=== PATIENT | female | born 1970 | race Caucasian/White ===

== ENCOUNTER → 2017-03-07 10:25 | Outpatient (CLI) | payer MEDICAID, SELFPAY ==
[2017-03-07 12:24] LABS: Amphetamine/Metha Screen,Urine Negative ng/mL (<1000); Barbiturates Screen,Urine Negative ng/mL (<200); Benzodiazepines Screen,Urine Negative ng/mL (200); Cannabinoid Screen,Urine Negative ng/mL (<50); Cocaine Screen,Urine Negative ng/g (<300); Methadone Screen,Urine Negative ng/mL (<300); Opiate Screen,Urine Negative ng/mL (<300); Phencyclidine Screen,Urine Negative ng/mL (<25)
[2017-03-17 11:06] LABS: Opiates Negative (Cutoff=100)
== END ==
PROVIDERS: PCP Nurse Practitioner Family; Visit Provider Anesthesiology
DX: Z79.899 Other long term (current) drug therapy (principal)
CPT/HCPCS: 80305; 80361; G0480

== ENCOUNTER → 2017-07-19 10:55 | Outpatient (REF) | payer MEDICAID, SELFPAY | LOC: LAB.CARL 10:55 | PROVIDERS: Visit Provider Nurse Practitioner Family | DX: S31.101A Unspecified open wound of abdominal wall, left upper quadrant without penetration into peritoneal cavity, initial encounter (principal); S31.100A Unspecified open wound of abdominal wall, right upper quadrant without penetration into peritoneal cavity, initial encounter | CPT/HCPCS: 87070; 87077; 87186; 87205 ==

== ENCOUNTER → 2018-06-06 11:24 | Outpatient (CLI) | payer MEDICAID, SELFPAY ==
[2018-06-06 14:36] LABS: Basophils # 0.1 K/mm3 (0-0.2); Basophils % 0.6 % (0.1-2.0); Eosinophils # 0.2 K/mm3 (0.0-0.4); Eosinophils % 1.5 % (0.1-12.0); Hematocrit 40.5 % (37.0-47.0); Hemoglobin 11.8 g/dL (12.2-16.2); Lymphocytes # 2.7 K/mm3 (0.7-4.5); Lymphocytes % 25.7 % (10-50); Mean Corpuscular HGB Conc 29.3 g/dL (31.8-35.4); Mean Corpuscular Hemoglobin 25.6 pg (27.0-31.2); Mean Corpuscular Volume 87.5 fl (81-99); Mean Platelet Volume 7.9 fl (7.4-10.4); Monocytes # 0.6 K/mm3 (0.1-1.0); Monocytes % 5.5 % (1.7-9.3); Neutrophils # 7.1 K/mm3 (1.8-7.8); Neutrophils % 66.8 % (37.0-80.0); Platelet Count 437 K/mm3 (142-424); Red Blood Count 4.62 M/mm3 (4.20-5.40); Red Cell Distribution Width 16.2 % (11.5-17.5); White Blood Count 10.6 K/mm3 (4.8-10.8)
[2018-06-06 14:42] LABS: Alanine Aminotransferase 47 U/L (12-78); Albumin/Globulin Ratio 0.7 (1.1-1.8); Alkaline Phosphatase 93 U/L (46-116); Anion Gap 11.8 mEq/L (5-15); Aspartate Amino Transferase 23 U/L (15-37); Bilirubin,Total 0.3 mg/dL (0.2-1.0); Blood Urea Nitrogen 13 mg/dL (7-18); Carbon Dioxide 27 mmol/L (21.0-32.0); Chloride 98 mmol/L (98-107); Chol/HDL Ratio 4.8 (1-3.5); Cholesterol 101 mg/dL (140-200); Creatinine,Serum 1.08 mg/dL (0.55-1.02); Estimated Glomerular Filt Rate 54 ml/min (>60); GFR (African American) 66 ML/MIN (>60); Globulin 4.3 gm/dl (1.3-3.2); HDL Cholesterol 21 mg/dL (29-89); LDL Cholesterol 46 mg/dL (0-130); Potassium 4.8 mmoL/L (3.5-5.1); Sodium 132 mmol/L (136-145); Total Protein,Serum 7.3 gm/dL (6.4-8.2); Triglycerides 170 mg/dL (30-200); VLDL Cholesterol 34 mg/dL (0-40)
[2018-06-06 14:53] LABS: Glucose 473 mg/dL (74-106)
[2018-06-06 15:30] LABS: Amphetamine/Metha Screen,Urine Negative ng/mL (<1000); Barbiturates Screen,Urine Negative ng/mL (<200); Benzodiazepines Screen,Urine Negative ng/mL (<200); Cannabinoid Screen,Urine Negative ng/mL (<50); Cocaine Screen,Urine Negative ng/mL (<300); Methadone Screen,Urine Negative ng/mL (<300); Opiate Screen,Urine Negative ng/mL (<300); Phencyclidine Screen,Urine Negative ng/mL (<25)
[2018-06-06 18:01] LABS: Hemoglobin A1C 13.3 % (0.0-7.0)
[2018-06-09 06:41] LABS: Microalbumin, Urine 66.7 ug/mL (Not Estab.)
== END ==
PROVIDERS: PCP Nurse Practitioner Family; Visit Provider Nurse Practitioner Family
DX: E11.59 Type 2 diabetes mellitus with other circulatory complications (principal); Z79.4 Long term (current) use of insulin; Z79.899 Other long term (current) drug therapy; Z79.84 Long term (current) use of oral hypoglycemic drugs
CPT/HCPCS: 36415; 80053; 80061; 80305; 82043; 83036; 85025

== ENCOUNTER → 2018-06-13 13:46 | Outpatient (CLI) | payer MEDICAID, SELFPAY ==
[2018-06-13 15:14] LABS: Amphetamine/Metha Screen,Urine Negative ng/mL (<1000); Barbiturates Screen,Urine Negative ng/mL (<200); Benzodiazepines Screen,Urine Positive ng/mL (<200); Cannabinoid Screen,Urine Negative ng/mL (<50); Cocaine Screen,Urine Negative ng/mL (<300); Methadone Screen,Urine Negative ng/mL (<300); Opiate Screen,Urine Negative ng/mL (<300); Phencyclidine Screen,Urine Negative ng/mL (<25)
[2018-06-20 11:20] LABS: Alprazolam Negative (Cutoff=100); Benzodiazepines Positive ng/mL (Cutoff=100); Clonazepam Negative (Cutoff=100); Flurazepam Negative (Cutoff=100); Lorazepam Negative (Cutoff=100); Midazolam Negative (Cutoff=100); Temazepam Negative (Cutoff=100); Triazolam Negative (Cutoff=100)
== END ==
PROVIDERS: Visit Provider Nurse Practitioner Family
DX: Z79.899 Other long term (current) drug therapy (principal); N39.0 Urinary tract infection, site not specified; F41.9 Anxiety disorder, unspecified
CPT/HCPCS: 80305; 80346; 87086; 87088; 87186

== ENCOUNTER 2018-06-15 14:09 | Outpatient (CLI) | payer MEDICAID, SELFPAY ==
[2018-06-15 14:10] VITALS: BP 124/71; PULSE 73; RESP 20; TEMP 36.6; O2SAT 92
== END 2018-06-15 14:51 | disposition home or self-care (01) ==
LOC: INF 14:10
PROVIDERS: PCP Nurse Practitioner Family; Visit Provider Nurse Practitioner Family
DX: N39.0 Urinary tract infection, site not specified (principal); Z16.12 Extended spectrum beta lactamase (ESBL) resistance
CPT/HCPCS: 96372; J1335

== ENCOUNTER → 2018-06-16 11:55 | Outpatient (CLI) | payer MEDICAID, SELFPAY ==
[2018-06-16 12:13] VITALS: BP 128/63; PULSE 95; RESP 16; TEMP 36.9; O2SAT 92; BMI 51.3
[2018-06-16 12:26] VITALS: BP 132/80; PULSE 84; RESP 16; TEMP 36.9; O2SAT 96
== END ==
PROVIDERS: PCP Nurse Practitioner Family; Visit Provider Nurse Practitioner Family
DX: N39.0 Urinary tract infection, site not specified (principal); Z16.12 Extended spectrum beta lactamase (ESBL) resistance
CPT/HCPCS: 96372; J1335

== ENCOUNTER → 2018-06-17 14:10 | Outpatient (CLI) | payer MEDICAID, SELFPAY ==
[2018-06-17 14:16] VITALS: BP 95/56; PULSE 84; RESP 16; TEMP 36.8; O2SAT 98; BMI 51.3
[2018-06-17 14:40] VITALS: BP 125/71; PULSE 83; RESP 16; TEMP 36.8; O2SAT 98
== END ==
PROVIDERS: PCP Nurse Practitioner Family; Visit Provider Nurse Practitioner Family
DX: N39.0 Urinary tract infection, site not specified (principal); Z16.12 Extended spectrum beta lactamase (ESBL) resistance
CPT/HCPCS: 96372; J1335

== ENCOUNTER → 2018-08-22 18:04 | Outpatient (CLI) | payer MEDICAID, SELFPAY ==
[2018-08-24 17:13] LABS: Microalbumin, Urine 156.7 ug/mL (Not Estab.)
== END ==
PROVIDERS: Visit Provider Nurse Practitioner Family
DX: E11.59 Type 2 diabetes mellitus with other circulatory complications (principal); R82.998 Other abnormal findings in urine
CPT/HCPCS: 82043; 87086; 87088; 87186

== ENCOUNTER → 2019-07-05 13:08 | Outpatient (CLI) | payer MEDICAID, SELFPAY ==
[2019-07-05 13:32] LABS: Basophils # 0.2 K/mm3 (0-0.2); Basophils % 1.6 % (0.1-2.0); Eosinophils # 0.3 K/mm3 (0.0-0.4); Eosinophils % 2.9 % (0.1-12.0); Hematocrit 40.5 % (37.0-47.0); Lymphocytes # 3.2 K/mm3 (0.7-4.5); Lymphocytes % 29.3 % (10-50); Mean Corpuscular Hemoglobin 31.1 pg (27.0-31.2); Mean Corpuscular Volume 97.1 fl (81-99); Mean Platelet Volume 8.3 fl (7.4-10.4); Monocytes # 0.6 K/mm3 (0.1-1.0); Monocytes % 5.8 % (1.7-9.3); Neutrophils # 6.6 K/mm3 (1.8-7.8); Neutrophils % 60.4 % (37.0-80.0); Platelet Count 418 K/mm3 (142-424); Red Blood Count 4.17 M/mm3 (4.20-5.40); Red Cell Distribution Width 14.8 % (11.5-17.5); White Blood Count 10.9 K/mm3 (4.8-10.8)
[2019-07-05 13:36] LABS: Chloride 104 mmol/L (98-107)
[2019-07-05 13:37] LABS: Potassium 5.2 mmoL/L (3.5-5.1); Sodium 138 mmol/L (136-145)
[2019-07-05 13:39] LABS: Alanine Aminotransferase 35 U/L (12-78); Alkaline Phosphatase 98 U/L (38-126); Aspartate Amino Transferase 38 U/L (14-36); Bilirubin,Total 0.5 mg/dl (0.2-1.3); Blood Urea Nitrogen 13 mg/dl (7-17); Estimated Glomerular Filt Rate 77 ml/min (>60); GFR (African American) 93 ML/MIN (>60)
[2019-07-05 13:40] LABS: Albumin Level 3.6 g/dl (3.5-5.0); Anion Gap 10.2 mEq/L (5-15); Calcium 9.8 mg/dl (8.4-10.2); Carbon Dioxide 29 mmol/L (22.0-30.0); Chol/HDL Ratio 5.3 (1-3.5); Cholesterol 175 mg/dl (140-200); Globulin 3.5 g/dL (1.3-3.2); Glucose 233 mg/dl (74-100); HDL Cholesterol 33 mg/dl (40-60); Total Protein,Serum 7.1 g/dl (6.3-8.2); Triglycerides 220 mg/dl (30-150); VLDL Cholesterol 44 mg/dL (0-40)
[2019-07-05 13:53] LABS: Hemoglobin A1C 7.3 % (4.0-6.0)
[2019-07-05 13:58] LABS: T4 (Thyroxine) 10.4 ug/dl (5.53-11.0)
[2019-07-05 14:11] LABS: Thyroid Stimulating Hormone 0.21 uIU/mL (0.465-4.68)
[2019-07-06 10:37] LABS: Vitamin D 25 Hydroxy 13.8 ng/mL (30.0-100.0)
[2019-07-06 10:38] LABS: Microalbumin, Urine 117.7 ug/mL (Not Estab.)
== END ==
PROVIDERS: Visit Provider Nurse Practitioner Family
DX: E11.9 Type 2 diabetes mellitus without complications (principal); E78.5 Hyperlipidemia, unspecified; E55.9 Vitamin D deficiency, unspecified; Z79.84 Long term (current) use of oral hypoglycemic drugs
CPT/HCPCS: 80053; 80061; 82043; 82652; 83036; 84436; 84443; 85025

== ENCOUNTER 2019-08-19 13:34 | Emergency (ER) | payer MEDICAID, SELFPAY ==
[2019-08-19] VITALS (20 sets, daily range): BP systolic 118–241; BP diastolic 64–133; PULSE 76–138; RESP 14–34; TEMP 36.7–37.7; O2SAT 90–100; BMI 35.5; BMI 61.9
--- NOTE | 2019-08-19 13:30 | PC.NURSE ---
1330: Pt arrived per ems on 100% non rebreather, responsive only to painful stimuli. Pt began to be bagged at this time. stated he wish to intubate. Pt given etomidate 8mg and succ 100mg 1334: Pt intubated with 7.0 ET 22 @ lip, bilateral breath sounds noted. 1340: 16F NG inserted @60, yellow gastric content aspirated, auscultation of NG in abdomen. 1341: Propofol administered at this time per protocol. Pt is currently sedated and stable at this time.
[2019-08-19 13:56] LABS: POC Glucose,Bedside 407 (70-110)
[2019-08-19 14:07] LABS: ABG Base Excess -8.7 mmol/L (-2.4-2.3); ABG HCO3 18.3 mmhg (22.0-26.0); ABG Oxygen Saturation 94 % (90-100); ABG PCO2 41.4 mmhg (35.0-45.0); ABG PH 7.26 mmol/L (7.35-7.45); ABG PO2 82.5 mmhg (80-100); ABG TCO2 19.6 mmhg (23-27)
[2019-08-19 14:09] LABS: Allen's Test Non Applicable; Oxygen 50 %; Pressure Support 5; Source Left Radial; Tidal Volume 400; Vent Rate 18
--- NOTE | 2019-08-19 14:15 | CT_ITS ---
PROCEDURE: CT CHEST WO CON CLINICAL INDICATION: resp failure Respiratory failure, fever, unresponsive COMPARISON: ABDPELW/WO CT ABD PELVIS W/WO CONTRAST from 10/14/2015 TECHNIQUE: Axial images obtained with sagittal and coronal reformats. All CT scans at the facility use one or more dose reduction, viz: automated exposure control, ma/kV adjustment per patient size (including targeted exams where dose is matched to indication, i.e. head), or iterative reconstruction technique. FINDINGS: There is an endotracheal tube present. The tip is 1.7 cm above the janelle. Nasogastric tube is noted. The tip is not visible on the image but is below the GE junction. No mediastinal or hilar mass. There are low lung volumes with elevated right hemidiaphragm. There is dense consolidation of the right lower lobe with volume loss. There is also consolidation of the left lower lobe medially. Air bronchograms are present in these areas of consolidation. Atelectatic changes are present in the right lung base. There is a calcified granuloma in the right middle lobe. There is trace right-sided effusion. The left lobe of the thyroid gland is enlarged. There is a left adrenal mass which measures 3 x 2.7 cm previously measuring 2.4 x 2 cm. The average density is 33 Hounsfield units. This is incompletely imaged. There is minimal angulation deformity involving the mid aspect of the body of the sternum. This is seen on the sagittal reformatted images and may only be due to mild degree of motion artifact as opposed to a nondisplaced fracture. Please correlate with clinical parameters.. The she is IMPRESSION: 1. Endotracheal tube is 1.7 cm above the janelle and could be withdrawn 2 cm. NG tube is in good position. 2. Elevated right hemidiaphragm with consolidation in the right lower lobe posteriorly and left lower lobe medially 3. Left adrenal mass at 3 x 2.7 cm. The density is greater than what 1 would expect for an adenoma. Primary or secondary neoplastic involvement is a consideration. Dictated by: Marin Del Real MD 08/19/2019 15:12 Electronically signed by Marin Del Real MD in [place] 08/19/2019 15:12
--- NOTE | 2019-08-19 14:17 | ECG_ITS ---
APPROVED REPORT Exam: Resting ECG HR:125 bpm ECG Measurements Heart Rate 125 AXES MN 140 P 68 QRSd 88 QRS 26 QT 322 T 64 QTc 464 <Conclusion> Sinus tachycardia Possible Left atrial enlargement Nonspecific ST and T wave abnormality Abnormal ECG Electronically signed by : Nils Pacheco, 08/19/2019 17:45:42
--- NOTE | 2019-08-19 14:17 | XR_ITS ---
PROCEDURE: XR CHEST PORTABLE CLINICAL HISTORY: ET placement/NG placement COMPARISON: ABDPELW/WO CT ABD PELVIS W/WO CONTRAST from 10/14/2015 FINDINGS: Endotracheal tube has been placed. The tip is 3 cm above the janelle at the T4 level. Right hemidiaphragm is elevated with atelectatic change in the right lung base. The left lung is clear. There is an NG tube present. The tip is not well delineated but is below the GE junction. No acute bony abnormalities. IMPRESSION: Good position of endotracheal tube and nasogastric tube with elevated right hemidiaphragm Dictated by: Marin Del Real MD 08/19/2019 14:36 Electronically signed by Marin Del Real MD in [facility] 08/19/2019 14:36
--- NOTE | 2019-08-19 14:25 | PC.NURSE ---
PT to CT with Gary PICHARDO at bedside
[2019-08-19 14:26] LABS: Microscopic, Urine URINE MICROSCOPIC (MICROSCOPIC)
[2019-08-19 14:30] LABS: Appearance,Urine CLEAR (Clear); Bilirubin,Urine Negative (Negative); Blood, Urine 2+ (Negative); Color,Urine YELLOW (Yellow); Glucose,Urine (UA) 3+ (Negative); Ketones,Urine TRACE (Negative); Leukocyte Esterase,Urine TRACE (Negative); Nitrate,Urine POSITIVE (Negative); Protein,Urine 2+ (Negative); Specific Gravity, Urine 1.025 (1.005-1.030); Urobilinogen,Urine 0.2 EU/dl (0.2)
[2019-08-19 14:33] LABS: Urine Pregnancy, HCG Qual. Negative (Negative)
[2019-08-19 14:34] LABS: Alanine Aminotransferase 32 U/L (12-78); Albumin Level 3.9 g/dl (3.5-5.0); Alkaline Phosphatase 130 U/L (38-126); Anion Gap 17.7 mEq/L (5-15); Aspartate Amino Transferase 26 U/L (14-36); Bilirubin,Total 0.6 mg/dl (0.2-1.3); Blood Urea Nitrogen 20 mg/dl (7-17); Calcium 9.8 mg/dl (8.4-10.2); Carbon Dioxide 20 mmol/L (22.0-30.0); Chloride 108 mmol/L (98-107); Creatinine Clearance Estimated 155 mL/min (50-200); Estimated Glomerular Filt Rate 89 ml/min (>60); GFR (African American) 108 ML/MIN (>60); Globulin 4.1 g/dL (1.3-3.2); Potassium 3.7 mmoL/L (3.5-5.1); Sodium 142 mmol/L (136-145)
[2019-08-19 14:36] LABS: Glucose 440 mg/dl (74-100)
[2019-08-19 14:40] LABS: Ethyl Alcohol < 10 mg/dl (0-10)
[2019-08-19 14:41] LABS: Acetone, Serum (Rapid) None Detected (None Detect)
[2019-08-19 14:43] LABS: Opiate Screen,Urine Negative ng/ml (<300)
[2019-08-19 14:44] LABS: Phencyclidine Screen,Urine Negative ng/ml (<25)
[2019-08-19 14:47] LABS: Troponin I < 0.01 ng/ml (0.00-0.034)
--- NOTE | 2019-08-19 14:50 | PC.NURSE ---
PT BACK FROM CT
[2019-08-19 14:52] LABS: Amphetamine/Metha Screen,Urine Negative ng/ml (<1000); Barbiturates Screen,Urine Negative ng/ml (<200)
[2019-08-19 14:53] LABS: Benzodiazepines Screen,Urine Positive ng/ml (<200)
[2019-08-19 14:54] LABS: Bacteria,Urine 4+ /lpf; WBC,Urine TNTC #/hpf (0-3)
[2019-08-19 14:55] LABS: Cannabinoid Screen,Urine Negative ng/ml (<50)
[2019-08-19 14:56] LABS: Cocaine Screen,Urine Negative ng/ml (<300); Methadone Screen,Urine Negative ng/ml (<300)
[2019-08-19 14:58] LABS: Basophils % 0.1 % (0.1-2.0); Hematocrit 40.5 % (37.0-47.0); Hemoglobin 12.5 g/dL (12.2-16.2); Lymphocytes # 0.8 K/mm3 (0.7-4.5); Mean Corpuscular HGB Conc 30.8 g/dL (31.8-35.4); Mean Corpuscular Hemoglobin 29.8 pg (27.0-31.2); Mean Corpuscular Volume 96.9 fl (81-99); Mean Platelet Volume 7.6 fl (7.4-10.4); Monocytes # 0.8 K/mm3 (0.1-1.0); Monocytes % 3.2 % (1.7-9.3); Neutrophils # 22.8 K/mm3 (1.8-7.8); Neutrophils % 93.6 % (37.0-80.0); Platelet Count 394 K/mm3 (142-424); Red Blood Count 4.18 M/mm3 (4.20-5.40); Red Cell Distribution Width 14.1 % (11.5-17.5); White Blood Count 24.4 K/mm3 (4.8-10.8)
[2019-08-19 15:00] LABS: MANUAL DIFFERENTIAL MANUAL DIFFERENTIAL (MANUAL DIFF)
[2019-08-19 15:03] LABS: Lactic Acid 4.1 mmol/L (0.7-2.1)
--- NOTE | 2019-08-19 15:04 | PC.NURSE ---
CRITICAL LACTIC OF 4 RELAYED TO
[2019-08-19 15:06] LABS: Bordetella Pertussis Not Detected (NotDetected); Chlamydophila Pneumoniae, PCR Not Detected (NotDetected); Coronavirus 19, PCR Not Detected (NotDetected); Mycoplasma Pneumoniae, PCR Not Detected (NotDected); Parainfluenza 3, PCR Not Detected (NotDetected); Parainfluenza 4, PCR Not Detected (NotDetected); Respiratory Syncytial Virus Not Detected (NotDetected)
[2019-08-19 15:08] LABS: Adenovirus,PCR Not Detected (NotDetected); Coronavirus 229E Not Detected (NotDetected); Coronavirus NL63 Not Detected (NotDetected); Coronavirus OC43 Not Detected (NotDetected); Coronovirus HKU1,PCR Not Detected (NotDetected); Human Metapneumovirus Not Detected (NotDetected); Influenza A, PCR Not Detected (NotDetected); Influenza AH1, 2009 Not Detected (NotDetected); Influenza AH1, PCR Not Detected (NotDetected); Influenza AH3,PCR Not Detected (NotDetected); Influenza B, PCR Not Detected (NotDetected); Parainfluenza 1, PCR Not Detected (NotDetected); Parainfluenza 2, PCR Not Detected (NotDetected); Rhinovirus/Enterovirus Not Detected (NotDetected)
--- NOTE | 2019-08-19 15:08 | PC.NURSE ---
1445 08/19/2019 Respiratory Care Note Pt transported to CT scan via stretcher. Madiha Mir CRT ambu bagged pt to CT and during CT. Pt placed back on vent with previous settings.
[2019-08-19 15:20] LABS: Lymphocytes % 6 % (10-50); Monocytes % 5 % (2-9); Neutrophils % 86 % (42-76); Total Cells Counted 100
--- NOTE | 2019-08-19 15:20 | PC.NURSE ---
Notified MD that pt meets critera for septic shock and septic bolus, stated he does not wish to initiate the full sepsis bolus but wishes to give her 2L of NS instead.
[2019-08-19 15:21] LABS: Platelet Estimate Normal; RBC Morphology Normal
[2019-08-19 15:22] LABS: Hypochromasia 1+
[2019-08-19 17:09] LABS: POC Glucose,Bedside 376 (70-110)
--- NOTE | 2019-08-19 17:24 | PC.NURSE ---
[facility] called for transfer
--- NOTE | 2019-08-19 17:25 | PC.NURSE ---
Dr Torres speaking with Dr Patel at [facility]
--- NOTE | 2019-08-19 17:47 | HMH.EDAMS ---
ED Disposition Clinical Impression: Altered mental status, Delirium due to general medical condition, Severe sepsis, Bilateral pneumonia, Respiratory failure Disposition: Xfer Short-Term Hosp Condition on Discharge: Critical Instructions: Pneumonia-Adult - Critical Care Critical Care Time: Yes Attestation: On 08/19/19, the high probability of a clinically significant, sudden or life threatening deterioration of the following system(s) required my full and direct attention, intervention and personal management. The time I documented below is in addition to time spent performing reported procedures but includes the following listed in this critical care notation. Total Critical Care Time: 75 Vital system(s) involved:: Respiratory Failure, Shock (Septic) My critical care processes included: Assessment & monitoring of V/S, Initial and Re-exams, Data Review/Interpretation, Coordinating Care, Medication Orders and management, Documentation Medical Decision Making - Medical Records Medical records reviewed: Yes: I reviewed the patient's medical records. - Bill Inquiry Pt receiving controlled substance: No Vital Signs: 08/19/19 13:28 08/19/19 13:32 08/19/19 13:40 Temperature 98.2 F Temperature Source Rectal Pulse Rate [Right Apical] 135 H 134 H Respiratory Rate 14 31 H 25 H Blood Pressure [Right Arm] 118/69 241/133 H Blood Pressure Mean [Right Arm] 85 169 Blood Pressure Source [Right Arm] Blood Pressure Position [Right Arm] 02 Sat by Pulse Oximetry 100 90 L 100 Oxygen Delivery Method Non-Rebreather Non-Rebreather Mechanical Ventilation Oxygen Flow Rate (LPM) 15 08/19/19 13:50 08/19/19 13:55 08/19/19 14:05 Temperature Temperature Source Pulse Rate [Right Apical] 126 H 128 H Respiratory Rate 31 H 23 Blood Pressure [Right Arm] 172/65 H 139/94 H Blood Pressure Mean [Right Arm] 100 109 Blood Pressure Source [Right Arm] Blood Pressure Position [Right Arm] 02 Sat by Pulse Oximetry 90 L 96 94 L Oxygen Delivery Method Mechanical Ventilation Mechanical Ventilation Mechanical Ventilation Oxygen Flow Rate (LPM) 15 08/19/19 14:15 08/19/19 14:30 08/19/19 15:00 Temperature Temperature Source Pulse Rate [Right Apical] 129 H 125 H 116 H Respiratory Rate 33 H 29 H 34 H Blood Pressure [Right Arm] 144/76 H 144/64 H 130/71 Blood Pressure Mean [Right Arm] 98 90 90 Blood Pressure Source [Right Arm] Blood Pressure Position [Right Arm] 02 Sat by Pulse Oximetry 99 99 98 Oxygen Delivery Method Mechanical Ventilation Mechanical Ventilation Mechanical Ventilation Oxygen Flow Rate (LPM) 08/19/19 15:54 08/19/19 16:15 08/19/19 17:30 Temperature Temperature Source Pulse Rate [Right Apical] 114 H 116 H 126 H Respiratory Rate 20 31 H 25 H Blood Pressure [Right Arm] 152/80 H 165/87 H 168/91 H Blood Pressure Mean [Right Arm] 104 113 116 Blood Pressure Source [Right Arm] Automatic Cuff Blood Pressure Position [Right Arm] Supine 02 Sat by Pulse Oximetry 99 97 96 Oxygen Delivery Method Mechanical Ventilation Mechanical Ventilation Mechanical Ventilation Oxygen Flow Rate (LPM) 08/19/19 18:04 08/19/19 18:35 08/19/19 18:53 Temperature 99.9 F H Temperature Source Rectal Pulse Rate [Right Apical] 128 H 131 H Respiratory Rate 20 26 H Blood Pressure [Right Arm] 184/94 H 169/88 H Blood Pressure Mean [Right Arm] 124 115 Blood Pressure Source [Right Arm] Blood Pressure Position [Right Arm] Supine 02 Sat by Pulse Oximetry 96 95 96 Oxygen Delivery Method Mechanical Ventilation Mechanical Ventilation Mechanical Ventilation Oxygen Flow Rate (LPM) 08/19/19 19:02 Temperature Temperature Source Pulse Rate [Right Apical] 116 H Respiratory Rate 28 H Blood Pressure [Right Arm] 161/90 H Blood Pressure Mean [Right Arm] 113 Blood Pressure Source [Right Arm] Blood Pressure Position [Right Arm] 02 Sat by Pulse Oximetry 94 L Oxygen Delivery Method Mechani
--- NOTE | 2019-08-19 17:50 | PC.NURSE ---
Addendum entered by Ariadna Patino RN 08/19/19 17:55: Lung sounds clear and equal bilaterally. Original Note: Pt tolerating mechanical vent. well. No distress noted. Pt is tachypnea, notified, no new orders. Vent setting have not changed since initial per RT. FIO2 at 50%. Large amount of green gastric fluid aspirated as needed. LÁZARO present. Pt responds to painful stimuli. GCS of 6. Mother remains at bedside, update given in regards to bed placement. No changes at this time.
--- NOTE | 2019-08-19 17:50 | PC.NURSE ---
[facility] called they will call back with Hospitalist.
--- NOTE | 2019-08-19 18:10 | PC.NURSE ---
[facility] cannot accept pt at this time, there are not any icu beds available.
[2019-08-19 18:21] LABS: Reflex Lactic Add Lactic Reflex
--- NOTE | 2019-08-19 18:25 | PC.NURSE ---
[facility] called for transfer, they are to call back.
[2019-08-19 18:29] LABS: Troponin I < 0.01 ng/ml (0.00-0.034)
--- NOTE | 2019-08-19 18:45 | PC.NURSE ---
placed call to [facility] in [place].
--- NOTE | 2019-08-19 18:50 | PC.NURSE ---
speaking to [facility] attending of
--- NOTE | 2019-08-19 18:55 | PC.NURSE ---
TRISTIAN CISNEROS [facility] will place pt on wait list, no beds available at this time
--- NOTE | 2019-08-19 18:56 | PC.NURSE ---
MD notified of pt being tachypnea and tachycardia, new orders given, see mar
[2019-08-19 18:57] LABS: Lactic Acid Follow Up (RFLX 1) 2.1 mmol/L (0.7-2.1)
--- NOTE | 2019-08-19 18:59 | PC.NURSE ---
Dr Israel speaking with Dr Raymond
--- NOTE | 2019-08-19 19:30 | PC.NURSE ---
report received from day nurseAriadna RN. Reports she just initiated third bottle of Propofol at this time. States she turned the rate down to 60mcg at this time. Patient appears to be tolerating drip well. VSS. No acute distress. EMV 3.
--- NOTE | 2019-08-19 19:40 | PC.NURSE ---
received call from [facility] speaking with donal the hospitalist; accepted and waiting bed assignment.
--- NOTE | 2019-08-19 19:45 | PC.NURSE ---
incr propofol at this time to 70
[2019-08-19 20:19] LABS: Reflex Lactic (2 hrs) Add Lactic Reflex
--- NOTE | 2019-08-19 20:33 | PC.NURSE ---
spoke with chastity at [facility]; [place] 2 an [place] 11 declined due to weather. will check back in an hour.
[2019-08-19 20:49] LABS: Lactic Acid Follow up (RFLX 2) 1.5 mmol/L (0.7-2.1)
[2019-08-19 21:02] LABS: Troponin I < 0.01 ng/ml (0.00-0.034)
--- NOTE | 2019-08-19 21:48 | PC.NURSE ---
received call back from [facility] re: transport. they formally decline transport secondary to weather.
--- NOTE | 2019-08-19 21:53 | PC.NURSE ---
call placed to [facility] for possible transport.
--- NOTE | 2019-08-19 22:01 | PC.NURSE ---
new diprivan bottle changed
--- NOTE | 2019-08-19 23:14 | PC.NURSE ---
pt left via [facility] [place] robert mosley was notified
--- NOTE | 2019-08-19 23:18 | PC.NURSE ---
changed diprivan bottles.
== END 2019-08-19 23:18 | disposition short-term general hospital (02) ==
LOC: ER 18:53 → 2ND 19:30
PROVIDERS: Emergency Provider Family Medicine
DX: R41.82 Altered mental status, unspecified (principal); F05 Delirium due to known physiological condition; A41.9 Sepsis, unspecified organism; J18.9 Pneumonia, unspecified organism; K46.9 Unspecified abdominal hernia without obstruction or gangrene; I10 Essential (primary) hypertension; E78.5 Hyperlipidemia, unspecified; G43.709 Chronic migraine without aura, not intractable, without status migrainosus; F41.9 Anxiety disorder, unspecified; K21.9 Gastro-esophageal reflux disease without esophagitis; E11.9 Type 2 diabetes mellitus without complications; Z79.4 Long term (current) use of insulin; Z79.84 Long term (current) use of oral hypoglycemic drugs; F17.210 Nicotine dependence, cigarettes, uncomplicated; Z79.899 Other long term (current) drug therapy
CPT/HCPCS: 31500; 71045; 71250; 80053; 80305; 81001; 81025; 82009; 82803; 82962; 83605; 84484; 85007; 85025; 87040; 87070; 87077; 87086; 87088; 87186; 87205; 87581; 87633; 87798; 93005; 96365; 96366; 96367; 96375; 96376; 99284; 99285; J0330; J2704